=== PATIENT | male | born 1960 | race Caucasian/White ===

== ENCOUNTER 2018-12-02 15:29 | Emergency (ER) | payer MEDICAID ==
[~2018-12-02] VITALS: Ht 172.7 cm; Wt 85.0 kg
--- NOTE | 2018-12-02 15:49 | NUR ---
BIB [facility]. +[place]. Unable to ambulate. Oriented to self and place, not time. Placed on NIBP and pulse ox. Will continue to monitor.
--- NOTE | 2018-12-02 16:54 | NUR ---
Resting in [facility]. No needs.
[2018-12-02 17:48] VITALS: BP 148/85
--- NOTE | 2018-12-02 18:10 | NUR ---
Steady gait. aware. Ready for DC.
--- NOTE | 2018-12-02 18:26 | NUR ---
Patient/Caregiver given discharge instructions and they have confirmed that they understand the instructions. Patient ambulatory with steady gait.
== END 2018-12-02 18:27 | disposition home or self-care (01) ==
LOC: ED 18:00
DX: F10.120 Alcohol abuse with intoxication, uncomplicated (principal)
CPT/HCPCS: 99283